=== PATIENT | female | born 1955 | race Caucasian/White ===

== ENCOUNTER → 2019-04-20 | Outpatient (CLI) | payer MEDICARE ==
[2014-04-21 12:52] VITALS: BP 100/63
[~2019-04-20] MED LIST: CLON1TAB PO; HYDR200T71 PO; LEVO100T PO; NAPR-514 PO; PARO40TA61 PO; TRAM300T2 PO
--- NOTE | 2019-04-20 12:52 | KCIC ---
MRI Lumbar Spine without contrast History: Radicular pain in right lower extremity, chronic low back pain Technique: Multiplanar, multi sequential noncontrast MR imaging was performed of the lumbar spine. Comparison: May 26, 2014 Findings: There again appears to be transitional anatomy. Most inferior fully formed intervertebral disc space again considered L5-S1. There is advanced degenerative disc disease at what is considered L3-4 and more eccentric to the left at L4-5, mild degenerative disc disease at L2-L3. Conus terminates near T12-L1. There is similar approximate 1 cm T2 hyperintense lesion of T11 vertebral body in retrospect likely unchanged, better seen on this exam, likely hemangioma. Lumbar vertebral body stature is maintained. AP alignment is within normal limits. There is nonspecific somewhat heterogeneous signal of S2, could be an underlying hemangioma, no bony expansion. Not fully evaluated, there is circumaortic or retroaortic left renal vein. L1-L2: There is a new extrusion extending above the intervertebral disc space, superior extent to level of the mid aspect of L1, greatest dimension about 3 mm AP by 11 mm CC by 7 mm transverse. There is mild indentation upon the ventral thecal sac without significant spinal stenosis or focal neural impingement. Neural foramina are adequate. L2-L3: There is mild buckling of the ligamentum flavum and facet hypertrophic change. There is minimal disc osteophyte complex and bulge more eccentric to the lateral recesses. There is again very mild narrowing of the right neural foramen. There is right posterolateral annular tear. Spinal canal is overall adequate. L3-L4: There is again minimal disc osteophyte complex. There is similar minimal narrowing of the far left lateral recess. There is mild facet degenerative change and buckling of the ligamentum flavum. Neural foramina are overall adequate, disc osteophyte complex near the extraforaminal left L3 nerve root without significant displacement. L4-L5: There is again disc osteophyte complex and superimposed bulge. There is overall mild narrowing of the far left lateral recess. There is again [id number] narrowing of the left neural foramen somewhat greater distally, right neural foramen adequate. L5-S1: Spinal canal and neural foramina are overall adequate. There is again bony narrowing about the extraforaminal left L5 nerve root by bone formation. Impression: 1. There is again appearance of transitional anatomy, most inferior fully formed intervertebral disc space considered L5-S1. There is a new extrusion extending above the L1-2 intervertebral disc space more centrally without new significant spinal stenosis or neural impingement. There is again degenerative disc disease greatest at L3-4 and L4-5, mild spondylosis. There is mild left lateral recess stenosis L3-4 and L4-5. There is again [id number] narrowing of the left L4-5 neural foramen, also bony narrowing about the extraforaminal left L5 nerve root at L5-S1. Electronically signed by: Yoan Finch MD (04/20/2019 12:49 PM) [id number]
== END | disposition home or self-care (01) ==
LOC: KCIC MRI 11:31
DX: M51.16 Intervertebral disc disorders with radiculopathy, lumbar region (principal); M48.07 Spinal stenosis, lumbosacral region; M47.26 Other spondylosis with radiculopathy, lumbar region; M25.78 Osteophyte, vertebrae; M89.38 Hypertrophy of bone, other site; G89.29 Other chronic pain
CPT/HCPCS: 72148